=== PATIENT | male | born 1965 | race Caucasian/White ===

== ENCOUNTER 2023-01-10 16:05 | Emergency (ER) | payer SELFPAY ==
[2023-01-10 16:12] VITALS: BP 140/88; PULSE 77; RESP 14; TEMP 37.1; O2SAT 99
--- NOTE | 2023-01-10 16:31 | ED.GENADUL1 ---
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 3.5 cm laceration is noted with tendon exposure. Tendon does seem to be intact. Patient is able to flex and extend the hand.She is not up-to-date on tetanus immunization. Injury occurred just prior to arrival. Related Data Previous Rx's Medication Instructions Recorded cephalexin 500 mg capsule 500 mg PO BID 10 days #20 caps 01/10/23 Allergies Allergy/AdvReac Type Severity Reaction Status Date / Time No Known Drug Allergies Allergy Verified 01/10/23 16:12 Review of Systems ROS Narrative All Systems are negative except as noted/marked.All systems reviewed and otherwise negative Exam Narrative Exam Narrative: Nurses note and vital signs reviewed and patient is not hypoxic. General: The patient appears well and in no apparent distress. Patient is resting comfortably on cart. Skin: Warm, dry, no pallor noted. There is no rash noted. Head: Normocephalic, atraumatic Eye: Normal conjunctiva, no drainage, EOMI. PERRL Ears, Nose, Mouth, and Throat: oral mucosa is moist. Nares patent. Mouth without vesicles. Ear canals patent. Tm's without Erythema Musculoskeletal: 3 Centimeter laceration with subcutaneous fat exposed to the palmar aspect of the right hand tendon exposure is noted. No obvious laceration of tendon or range of motion in the extremity and little finger Neurological: A&O x4, normal speech Psychiatric: Cooperative Constitutional Vital Signs, click to edit/add: Last Vital Signs Temp 98.7 F 01/10/23 16:12 Pulse 77 01/10/23 16:12 Resp 14 01/10/23 16:12 BP 140/88 01/10/23 16:12 Pulse Ox 99 01/10/23 16:12 O2 Del Method Room Air 01/10/23 16:12 Course Vital Signs Vital signs: Vital Signs Temperature 98.7 F 01/10/23 16:12 Pulse Rate 77 10/06/23 16:12 Respiratory Rate 14 01/10/23 16:12 Blood Pressure 140/88 01/10/23 16:12 Pulse Oximetry 99 01/10/23 16:12 Oxygen Delivery Method Room Air 01/10/23 16:12 Temperature 98.7 F 01/10/23 16:12 Pulse Rate 77 01/10/23 16:12 Respiratory Rate 14 01/10/23 16:12 Blood Pressure 140/88 01/10/23 16:12 Pulse Oximetry 99 01/10/23 16:12 Oxygen Delivery Method Room Air 01/10/23 16:12 Medical Decision Making MDM Narrative Medical decision making narrative: Patient presented here with chief complaint laceration to the right palm of his hand extending from the center of the palm up to the base of the little digit. Tendon exposure is noted but appears to be intact full range of motion. Patient's hand was anesthetized one percent lidocaine solution locally when he arrives to room. Hand was soaked in Betasept and saline for twenty minutes. He had an x-ray was obtained. No acute foreign body. Wound was reapproximated with 4-0 Ethilon sutures x 12 sutures. wound dressing applied by nursing staff. Patient will follow-up with Dr. Johnson for suture removal in ten days. He has full range of motion of the hand tendon was exposed but no acute injury is noted. Patient will be placed on Keflex. Differential Diagnosis Differential Diagnosis: Hand laceration Discharge Plan Discharge Chief Complaint: Extremity Injury, Upper Clinical Impression: Hand laceration Patient Disposition: Home, Self-Care Time of Disposition Decision: 17:32 Condition: Good Mode of Transportation: Private Vehicle Prescriptions / Home Meds: New cephalexin 500 mg capsule 500 mg PO BID 10 Days Qty: 20 0RF Instructions: Care For Your Stitches (ED), Laceration (ED) Stand Alone Forms: Portal Instructions Referrals: Leeroy Johnson MD [Primary Care Provider] - 1 week (follow up in 7-10 days for suture removal) Documented by User: Louie Bhatti 01/10/23 17:51 HPI - General Adult General Chief complaint: Extremity Injury, Upper Stated complaint: UPPER EXTREMITY INJURY RIGHT HAND Time Seen by Provider: 01/10/23 16:19 History of Present Illness HPI narrative: 57-year-old male presents with chief complaint of a laceration.Patient was working with a meat cutter at a restaurant prior to arrival and accidentally sliced his 5th digit and hand on the palmar aspect. 3.5 cm laceration is noted with tendon exposure. Tendon does seem to be intact. Patient is able to flex and extend the hand. He is not up-to-date on tetanus immunization. Injury occurred just prior to arrival. Related Data Previous Rx's Medication Instructions Recorded cephalexin 500 mg capsule 500 mg PO BID 10 days #20 caps 01/10/23 Allergies Allergy/AdvReac Type Severity Reaction Status Date / Time No Known Drug Allergies Allergy Verified 01/10/23 16:12 Exam Constitutional Vital Signs, click to edit/add: Last Vital Signs Temp 98.7 F 01/10/23 16:12 Pulse 77 01/10/23 16:12 Resp 14 01/10/23 16:12 BP 140/88 01/10/23 16:12 Pulse Ox 99 01/10/23 16:12 O2 Del Method Room Air 01/10/23 16:12 Course Vital Signs Vital signs: Vital Signs Temperature 98.7 F 01/10/23 16:12 Pulse Rate 77 01/10/23 16:12 Respiratory Rate 14 01/10/23 16:12 Blood Pressure 140/88 01/10/23 16:12 Pulse Oximetry 99 01/10/23 16:12 Oxygen Delivery Method Room Air 01/10/23 16:12 Temperature 98.7 F 01/10/23 16:12 Pulse Rate 77 01/10/23 16:12 Respiratory Rate 14 01/10/23 16:12 Blood Pressure 140/88 01/10/23 16:12 Pulse Oximetry 99 01/10/23 16:12 Oxygen Delivery Method Room Air 01/10/23 16:12 Medical Decision Making [facility] Narrative Medical decision making narrative: Patient presented here with chief complaint laceration to the right palm of his hand extending from the center of the palm up to the base of the little digit. Tendon exposure is noted but appears to be intact full range of motion. Patient's hand was anesthetized one percent lidocaine solution locally when he arrives to room. Hand was soaked in Betasept and saline for twenty minutes. An x-ray was obtained. No acute foreign body. Wound was reapproximated with 4-0 Ethilon sutures x 12 sutures. wound dressing applied by nursing staff. Patient will follow-up with Dr. Johnson for suture removal in ten days. He has full range of motion of the hand tendon was exposed but no acute injury is noted. Patient will be placed on Keflex. Discharge Plan Discharge Chief Complaint: Extremity Injury, Upper Clinical Impression: Hand laceration Patient Disposition: Home, Self-Care Time of Disposition Decision: 17:32 Condition: Good Mode of Transportation: Private Vehicle Prescriptions / Home Meds: New cephalexin 500 mg capsule 500 mg PO BID 10 Days Qty: 20 0RF Instructions: Care For Your Stitches (ED), Laceration (ED) Stand Alone Forms: Portal Instructions Referrals: Leeroy Johnson MD [Primary Care Provider] - 1 week (follow up in 7-10 days for suture removal)
--- NOTE | 2023-01-10 16:48 | XR_ITS ---
The [address] [address] Patient Name: LETI VANG MRN: [id number] date: 1965 Sex: M Assigned Patient Location: ER Current Patient Location: ER Accession/Order Number: [id number] Exam Date: 01/10/2023 16:40 Report Date: 01/10/2023 16:58 At the request of: RONAL ALONSO Procedure: XR hand RT min 3V EXAM: XR hand RT min 3V HISTORY: Sliced palm of hand on medial slicer COMPARISON: None. TECHNIQUE: 3 views FINDINGS:IMPRESSION: Soft tissue irregularity and edema of the palm of the hand. No visualized radiodense foreign body. No osseous lesion, fracture, dislocation or subluxation. Joint spaces are normal. No visualized effusion. Electronically authenticated by: GAIL VERDUGO Date: 01/10/2023 16:58
[2023-01-10] MEDS: BACITRACIN 0.9 GM PACKET 1 PACKET TOPICAL (16:55)
[2023-01-10] MEDS: IBUPROFEN 600 MG TABLET PO ×2 (16:56→17:49)
[2023-01-10] MEDS: ADACEL DIPH,PERTUSS(ACELL),TET VAC/PF 0.5 ML ADULT SYRINGE IM (16:56)
[2023-01-10] MEDS: LIDOCAINE HCL 1% 100 MG/10 ML MDV INJ (16:57)
== END 2023-01-10 17:51 | disposition home or self-care (01) ==
PROVIDERS: Emergency Provider Emergency Medicine; PCP Family Medicine
DX: S61.411A Laceration without foreign body of right hand, initial encounter (principal); Z23 Encounter for immunization; W26.8XXA Contact with other sharp object(s), not elsewhere classified, initial encounter
CPT/HCPCS: 12002; 73130; 90471; 90715; 99284